=== PATIENT | female | born 1995 | race Caucasian/White ===

== ENCOUNTER 2024-12-23 14:37 | Emergency (ER) | payer OTHER ==
[2024-12-23 14:45] VITALS: BMI 33.3
[2024-12-23 17:14] LABS: ABSOLUTE IMMATURE GRANULOCYTES 0.05 x10^3/uL (0.0-0.031); BASOPHILS # 0.05 x10^3/uL (0.01-0.08); EOSINOPHIL % 0.5 % (0.7-5.8); EOSINOPHILS # 0.06 x10^3/uL (0.04-0.36); MCHC 30.9 g/dl (32.2-35.5); MEAN CELL VOLUME 87.8 fl (79.4-94.8); MEAN PLT VOLUME 10.1 fl (9.4-12.3); MONOCYTE # 0.62 x10^3/uL (0.24-0.86); MONOCYTE % 5.5 % (4.7-12.5); RDW 12.7 % (12.1-16.5)
[2024-12-23 17:36] LABS: CO2 24 mmol/L (21-32); GLUCOSE,RANDOM 82 mg/dL (74-106)
[2024-12-23 17:39] LABS: CREATININE 0.9 mg/dL (0.55-1.3)
[2024-12-23 17:40] LABS: SGOT/AST 121 U/L (15-37)
[2024-12-23 17:41] LABS: TOT PROT 8.3 g/dl (6.4-8.2)
[2024-12-23 17:42] LABS: ALK PHOS 79 U/L (45-117)
[2024-12-23 18:02] LABS: SGPT/ALT 35 U/L (13-61)
[2024-12-23 18:29] LABS: HCV DIAGNOSTIC IN-HOUSE W/RFLX NON-REACTIVE (NONREACTIVE)
[2024-12-23 18:30] LABS: HIV INTERPRETATION NEGATIVE (NEGATIVE)
[2024-12-23 18:51] LABS: URINE APPEARANCE CLEAR; URINE BILIRUBIN NEGATIVE (NEGATIVE); URINE COLOR YELLOW; URINE GLUCOSE (UA) NEGATIVE (NEGATIVE); URINE KETONE TRACE (NEGATIVE); URINE LEUK ESTERASE NEGATIVE (NEGATIVE); URINE NITRITE NEGATIVE (NEGATIVE); URINE PROTEIN NEGATIVE (NEGATIVE); URINE UROBILINOGEN 0.2 mg/dL (0.2-1.0)
[2024-12-23 19:32] VITALS: BP 107/57; PULSE 70; RESP 14; TEMP 98.3
[2024-12-23] MEDS: SODIUM CHLORIDE 0.9% 500 ML INFUS.BAG IV ONE (20:59)
== END 2024-12-23 20:59 | disposition home or self-care (01) ==
LOC: JER 14:37
DX: O20.9 Hemorrhage in early pregnancy, unspecified (principal); O21.9 Vomiting of pregnancy, unspecified; O99.891 Other specified diseases and conditions complicating pregnancy; M79.10 Myalgia, unspecified site; R42 Dizziness and giddiness; R53.1 Weakness; Z3A.01 Less than 8 weeks gestation of pregnancy
CPT/HCPCS: 36415; 76817-TC; 80053; 81003; 84132; 84702; 85025; 86803; 87086; 87389; 99284-25